=== PATIENT | male | born 1955 | race Caucasian/White ===

== ENCOUNTER → 2018-08-16 | Outpatient (CLI) | payer MEDICARE ==
[2018-08-16 07:28] LABS: Blood Urea Nitrogen 18 mg/dL (9-20)
--- NOTE | 2018-08-16 08:58 | CT ---
EXAMINATION TYPE: CT abdomen w con DATE OF EXAM: 08/16/2018 COMPARISON: None. HISTORY: Generalized abdominal pain. CT DLP: 913 mGycm, Automated Exposure Control for Dose Reduction was Utilized. CONTRAST: CT scan of the abdomen is performed with oral and with IV Contrast, patient injected with 100 mL of I sovue 300. FINDINGS: LUNG BASES: No significant abnormality is appreciated. LIVER/GB: No significant abnormality is appreciated. PANCREAS: No significant abnormality is seen. SPLEEN: No significant abnormality is seen. ADRENALS: No significant abnormality is seen. KIDNEYS: No significant abnormality is seen. BOWEL: Oral contrast does not reach colonic level making evaluation of distal bowel slightly suboptim al. No suspicious small or large bowel dilatation is present. LYMPH NODES: No greater than 1cm abdominal lymph nodes are appreciated. OSSEOUS STRUCTURES: Mild facet arthropathy lower lumbar spine. [id number] disc space narrowing L2-L3 level with vacuum disc phenomenon. OTHER: Mild to moderate calcified plaque of the aorta. IMPRESSION: No significant acute finding is seen to account for patient's clinical symptoms of gener alized abdominal pain.
== END | disposition home or self-care (01) ==
LOC: RADCTMAIN 06:48
PROVIDERS: ATTEND Family Medicine
DX: R10.84 Generalized abdominal pain (principal); Z01.812 Encounter for preprocedural laboratory examination
CPT/HCPCS: 82565; 84520; 74160; 36415; Q9967

== ENCOUNTER → 2019-04-25 | Outpatient (CLI) | payer MEDICARE ==
--- NOTE | 2019-04-25 13:03 | US ---
EXAMINATION TYPE: US abdomen complete DATE OF EXAM: 04/25/2019 COMPARISON: 08/16/2018 CT CLINICAL HISTORY: R10.84 abdominal pain.Pain for years. EXAM MEASUREMENTS: Liver Length: 16.9 cm Gallbladder Wall: .3 cm CBD: .8 cm Spleen: 10.9 cm Right Kidney: 11.0 x 4.6 x 4.7 cm Left Kidney: 10.1 x 5.2 x 5.0 cm Pancreas: wnl Liver: wnl Gallbladder: wnl Evidence for sonographic Ghotra's sign: No CBD: Dilated Spleen: wnl Right Kidney: wnl Left Kidney: wnl Upper IVC: wnl Abd Aorta: Prox 3.2 cm upper limits. The liver is homogenous. The intrahepatic portion of the IVC and proximal abdominal aorta are within normal limits. There is no evidence of cholelithiasis. The visualized portions of the pancreas ar e homogenous. The spleen is unremarkable. Kidneys are symmetric and free of hydronephrosis. No janett al lesions are seen. IMPRESSION: 1. Aneurysmal dilatation of the proximal abdominal aorta measuring up to 3.2 cm. 2. Dilation of the common bile duct up to 0.8 cm without other evidence for acute cholecystitis. MRCP could further evaluate this finding as this is a new finding from the prior CT of 08/16/2018.
== END | disposition home or self-care (01) ==
LOC: RADUSWWP 09:02
PROVIDERS: ATTEND Surgery
DX: I71.4 Abdominal aortic aneurysm, without rupture (principal); K83.8 Other specified diseases of biliary tract
CPT/HCPCS: 76700

== ENCOUNTER → 2020-02-05 | Outpatient (CLI) | payer MEDICARE ==
--- NOTE | 2020-02-05 10:26 | CT ---
EXAMINATION TYPE: CT brain wo con DATE OF EXAM: 02/05/2020 COMPARISON: None HISTORY: 64-year-old male R51 headaches TECHNIQUE: Examination was done in axial plane without intravenous contrast. Coronal and sagittal r econstructions performed. CT DLP: 858.7 mGycm Automated exposure control for dose reduction was used. FINDINGS: There is no evidence of acute intracranial hemorrhage, acute ischemic changes, mass, mass-effect, or extra-axial fluid collection. There is no effacement of cerebral sulci or basal subarachnoid cister ns. There is no hydrocephalus. There is no midline shift. Cosme-white matter distinction is preserv ed. [id number] cerebral cortical atrophy. Paranasal sinuses and mastoid air cells are pneumatized. Orbits and globes are intact. IMPRESSION: Mild to moderate cerebral cortical atrophy. No acute intracranial abnormality seen.
== END | disposition home or self-care (01) ==
LOC: RADCTMAIN 07:35
PROVIDERS: ATTEND Physician Assistant Medical
DX: G31.89 Other specified degenerative diseases of nervous system (principal)
CPT/HCPCS: 70450

== ENCOUNTER → 2021-11-08 | Outpatient (CLI) | payer MEDICARE ==
--- NOTE | 2021-11-08 16:09 | P.SLEEP ---
History of Present Illness H&P Date: 11/08/21 This is a 66-year-old male patient, referred to me for sleep apnea evaluation. According to the , the patient is having loud snoring and apneas overnight. The patient is currently retired. 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 He is known to have diabetes, hypertension, hyperlipidemia and COPD. He goes to bed at around 11 PM. Wakes up 7 AM in the morning. He is restless during sleep. Denies waking up choking or gasping for air. No nocturia. Occasionally grinds his teeth and has nighttime heartburn. His Saltese score is low at 4. No recent weight gain or weight loss. No sleep paralysis. No hallucinations. No cataplexy. Review of Systems Constitutional: Reports daytime sleepiness, Reports fatigue Eyes: denies as per HPI, denies blurred vision, denies bulging eye, denies decreased vision, denies diplopia, denies discharge, denies dry eye, denies irritation, denies itching, denies pain, denies photophobia, denies loss of peripheral vision, denies loss of vision, denies tunnel vision/blind spots Ears: deny: decreased hearing, ear discharge, earache, tinnitus Ears, nose, mouth and throat: Reports as per HPI Breasts: absent: as per HPI, gynecomastia Cardiovascular: Reports as per HPI Respiratory: Reports snoring Gastrointestinal: Reports as per HPI Genitourinary: Reports as per HPI Musculoskeletal: Reports as per HPI Musculoskeletal: absent: ankle pain, ankle stiffness, ankle swelling Integumentary: Reports as per HPI Neurological: Reports as per HPI Psychiatric: Reports as per HPI Endocrine: Reports as per HPI Hematologic/Lymphatic: Reports as per HPI Allergic/Immunologic: Reports as per HPI Past Medical History Additional Past Medical History / Comment(s): Diabetes mellitus, hypertension, hyperlipidemia, COPD Past Surgical History: No Surgical Hx Reported Additional Past Surgical History / Comment(s): Colonoscopy Smoking Status: Never smoker Past Alcohol Use History: None Reported Past Drug Use History: None Reported Medications and Allergies Home Medications and Allergies Comment(s): Metformin 1000 mg once a day, Lipitor 10 mg by mouth daily, glipizide 5 mg by mouth daily, lisinopril 20 mg by mouth daily, Prilosec 20 mg by mouth daily. Physical Exam Vitals: BP is 137/73, pulse is 57, respirations 14, temperature is 96.6, body mass index is 25.2, weight is 197 pounds, Saltese score is a 4, neck size is 16 inches. The patient appeared well nourished and normally developed. Vital signs as documented. Head exam is unremarkable. No scleral icterus or corneal arcus noted. Neck is without jugular venous distension, thyromegaly, or carotid bruits. Carotid upstrokes are brisk bilaterally. Lungs are clear to auscultation and percussion. Cardiac exam reveals the PMI to be normally sized and situated. Rhythm is regular. First and second heart sounds normal. No murmurs, rubs or gallops. Abdominal exam reveals normal bowel sounds, no masses, no organomegaly and no aortic enlargement. Extremities are nonedematous and both femoral and ped al pulses are normal.Examination of the skin revealed no evidence of significant rashes, suspicious appearing nevi or other concerning lesions.Neurologically, the patient is awake and alert and the patient does not have any focal neurological deficit. Cranial nerves are essentially intact. Assessment and Plan Plan: Loud snoring with limited hypersomnia, Saltese score is at 4, low clinical suspicion for obstructive sleep apnea. Diabetes mellitus Hypertension Hyperlipidemia COPD Plan Proceed with screening polysomnogram We'll discuss the results with the patient and decide on treatment accordingly. My overall clinical suspicion is low. Optimize comorbidities Maintaining good sleep hygiene measures We'll continue to follow Sleep Note - Sleep Note Sleep Note: Temperature: Pulse Rate: Respiratory Rate: Blood Pressure: SpO2: Height: Weight: BMI: Neck Circumference:
== END | disposition home or self-care (01) ==
LOC: SLEEP 13:09
PROVIDERS: ATTEND Internal Medicine Critical Care Medicine
DX: R06.83 Snoring (principal); E11.9 Type 2 diabetes mellitus without complications; I10 Essential (primary) hypertension; E78.5 Hyperlipidemia, unspecified; J44.9 Chronic obstructive pulmonary disease, unspecified
CPT/HCPCS: 99211

== ENCOUNTER → 2021-12-14 | Outpatient (CLI) | payer MEDICARE ==
--- NOTE | 2021-12-16 07:07 | MR ---
EXAMINATION TYPE: MR brain wo/w con DATE OF EXAM: 12/14/2021 COMPARISON: None HISTORY: Memory loss CONTRAST: Standard multiplanar, multisequence MRI departmental protocol images were obtained without contrast a nd with mL intravenous gadolinium contrast. Diffusion images show no evidence of an acute infarct. There is cerebral cortical atrophy. There is n o mass effect or midline shift. No sign of intracranial hemorrhage. There is some thinning of the cor pus callosum. Brainstem is intact. There is some mild increased signal adjacent to the lateral ventri cles consistent with age-related white matter changes. No evidence of posterior fossa mass. Sella turcica is normal. No evidence of orbital mass. The contrast images show no pathologic enhancement. There is normal enhancement of the venous sinuses . IMPRESSION: Cerebral atrophy. No acute intracranial abnormality. Age related white matter signal changes.
== END | disposition home or self-care (01) ==
LOC: RADMRIMAIN 16:00
PROVIDERS: ATTEND Family Medicine
DX: E11.42 Type 2 diabetes mellitus with diabetic polyneuropathy (principal); R41.89 Other symptoms and signs involving cognitive functions and awareness; I69.819 Unspecified symptoms and signs involving cognitive functions following other cerebrovascular disease
CPT/HCPCS: 70553; A9585

== ENCOUNTER → 2022-04-06 | Outpatient (CLI) | payer MEDICARE, OTHER ==
--- NOTE | 2022-04-07 11:01 | NM ---
EXAMINATION TYPE: NM DatScan Brain SPECT DATE OF EXAM: 04/06/2022 COMPARISON: Correlation MRI 12/14/2021 HISTORY: 66-year-old male G2 5.0, tremor TECHNIQUE: 10 drops of Lugol's solution was administered 1 hour prior to injection as a thyroid bloc cherie agent. After the administration of 4.6 mCi I-123 Ioflupane DaTscan. Images obtained [address] injection. SPECT images of the brain were acquired with axial and coronal reconstructions. FINDINGS: There is bilateral blunting of the corpus striatum and diffuse increased background activity. IMPRESSION: Findings compatible with either idiopathic Parkinson's disease or a parkinsonian syndrome.
== END | disposition home or self-care (01) ==
LOC: RADNMMAIN 10:53
PROVIDERS: ATTEND Psychiatry & Neurology Neurology
DX: G25.0 Essential tremor (principal)
CPT/HCPCS: 78803; A9584

== ENCOUNTER 2022-09-08 10:20 | Emergency (ER) | payer MEDICARE ==
[2022-09-08 10:41] VITALS: TEMP 98.5
--- NOTE | 2022-09-08 11:35 | XR ---
EXAMINATION TYPE: XR chest 2V DATE OF EXAM: 09/08/2022 COMPARISON: NONE TECHNIQUE: PA and lateral views submitted. HISTORY: ANASTASIYA FINDINGS: The lungs are clear and there is no pneumothorax, pleural effusion, or focal pneumonia. Heart size normal and no overt failure. Osseous structures demonstrate hypertrophic and degenerative changes of the spine. Hyperinflation suggests COPD. Arthropathy of the right shoulder. Atherosclerotic change a sophie. IMPRESSION: 1. No acute process. Correlate for COPD.
[2022-09-08 11:48] LABS: Basophils % (A) 0 %; Eosinophils % (A) 1 %; HCT 47.1 % (39.0-53.0); HGB 15.8 gm/dL (13.0-17.5); Lymphocytes # (A) 1.1 k/uL (1.0-4.8); Lymphocytes % (A) 20 %; MCH 32.5 pg (25.0-35.0); MCHC 33.5 g/dL (31.0-37.0); MCV 97.1 fL (80.0-100.0); Mean Platelet Volume 7.3; Monocytes # (A) 0.4 k/uL (0-1.0); Monocytes % (A) 8 %; Neutrophils % (A) 71 %; Platelet Count 160 k/uL (150-450); RBC 4.85 m/uL (4.30-5.90); RDW 12.6 % (11.5-15.5); WBC 5.6 k/uL (3.8-10.6)
[2022-09-08 12:05] LABS: ALT 17 U/L (4-49); AST 23 U/L (17-59); African American GFR (CKD) >90 (>60 ml/min/1.73 sqM); Albumin 4.2 g/dL (3.5-5.0); Alkaline Phosphatase 107 U/L (38-126); Anion Gap 7 mmol/L; Blood Urea Nitrogen 11 mg/dL (9-20); Calcium 9.1 mg/dL (8.4-10.2); Carbon Dioxide 29 mmol/L (22-30); Chloride 103 mmol/L (98-107); Glucose 102 mg/dL (74-99); Magnesium 2.2 mg/dL (1.6-2.3); Non-African American GFR(CKD) >90 (>60 ml/min/1.73 sqM); Potassium 3.8 mmol/L (3.5-5.1); Sodium 139 mmol/L (137-145); Total Bilirubin 0.6 mg/dL (0.2-1.3); Total Protein 6.7 g/dL (6.3-8.2)
[2022-09-08 12:55] LABS: INR 1.1 (<1.2); Partial Thromboplastin Time 24.8 sec (22.0-30.0); Prothrombin Time 11.7 sec (9.0-12.0)
[2022-09-08 13:10] VITALS: RESP 18
--- NOTE | 2022-09-08 13:32 | ED ---
General Adult HPI - General Chief complaint: Shortness of Breath Stated complaint: ANASTASIYA Time Seen by Provider: 09/08/22 10:51 Source: patient, RN notes reviewed Mode of arrival: ambulatory Limitations: no limitations - History of Present Illness Initial comments: 67-year-old male presents emergency Department with chief complaint of shortness of breath. Patient states she's been having increasing shortness but the last one month did CBC was placed on Zithromax and steroids. He states he does not feel any improvement. He was also given an inhaler. Patient states she was diagnosed with COPD in the past. Patient states that his PCP schedule him for a stress test but is one month away. Denies any chest pain. He states he just gets winded occasionally. Nothing much at rest. Denies any productive cough. - Related Data Allergies Allergy/AdvReac Type Severity Reaction Status Date / Time No Known Allergies Allergy Verified 09/08/22 10:41 Review of Systems ROS Statement: Those systems with pertinent positive or pertinent negative responses have been documented in the HPI. ROS Other: All systems not noted in ROS Statement are negative. Past Medical History Past Medical History: Diabetes Mellitus Additional Past Medical History / Comment(s): Diabetes mellitus, hypertension, hyperlipidemia, COPD, c pap. Parkinsons Past Surgical History: No Surgical Hx Reported Additional Past Surgical History / Comment(s): Colonoscopy Past Psychological History: No Psychological Hx Reported Smoking Status: Never smoker Past Alcohol Use History: Occasional Past Drug Use History: None Reported General Exam Limitations: no limitations General appearance: alert, in no apparent distress Head exam: Present: atraumatic, normocephalic, normal inspection Neck exam: Present: normal inspection, full ROM. Absent: tenderness, meningismus, lymphadenopathy Respiratory exam: Present: normal lung sounds bilaterally. Absent: respiratory distress, wheezes, rales, rhonchi, stridor Cardiovascular Exam: Present: regular rate, normal rhythm, normal heart sounds. Absent: systolic murmur, diastolic murmur, rubs, gallop, clicks GI/Abdominal exam: Present: soft, normal bowel sounds. Absent: distended, tenderness, guarding, rebound, rigid Neurological exam: Present: alert Skin exam: Present: warm, dry, intact, normal color. Absent: rash Course Vital Signs 09/08/22 09/08/22 09/08/22 10:37 11:20 11:25 Temperature 98.5 F Pulse Rate 65 51 L Respiratory 24 24 24 Rate Blood Pressure 158/76 144/73 O2 Sat by Pulse 98 99 Oximetry 09/08/22 09/08/22 09/08/22 12:42 13:08 14:02 Temperature Pulse Rate 55 L 66 65 Respiratory 20 18 18 Rate Blood Pressure 147/81 146/70 144/71 O2 Sat by Pulse 96 98 99 Oximetry EKG Findings - EKG Comments: EKG Findings:: EKG 4-10:50 sinus bradycardia rate of 54 OH 190 QRS 101 QT/QTc 412/398 - EKG Results: EKG: interpreted by [facility] Medical Decision Making - Medical Decision Making Was pt. sent in by a medical professional or institution (, PA, [employer]ER, urgent care, hospital, or custodial...) When possible be specific @ -No Did you speak to anyone other than the patient for history (EMS, parent, family, police, friend...)? What history was obtained from this source @ - providing past medical history and current medications Did you review nursing and triage notes (agree or disagree)? Why? @ -I reviewed and agree with nursing and triage notes Were old charts reviewed (outside hosp., previous admission, EMS record, old EKG, old radiological studies, urgent care reports/EKG's, custodial records)? Report findings @ -No old charts were reviewed Differential Diagnosis (chest pain, altered mental status, abdominal pain women, abdominal pain men, vaginal bleeding, weakness, fever, dyspnea, syncope, headache, dizziness, GI bleed, back pain, seizure, CVA, palpatations, mental health, musculoskeletal)? @ -Differential Dyspnea: Coronary syndrome, arrhythmia, tamponade, asthma, COPD, pulmonary embolism, pneumonia, pneumothorax, pulmonary effusion, anaphylaxis, diabetic ketoacidosis, flailed chest, pulmonary contusion, diaphragmatic rupture, anemia, neuromuscular, this is not meant to be an all-inclusive list. ble EKG interpreted by me (3pts min.). @ -As above X-rays interpreted by me (1pt min.). @ -Chest x-ray shows COPD changes, no acute process was CT interpreted by me (1pt min.). @ -None done U/S interpreted by me (1pt. min.). @ -None done What testing was considered but not performed or refused? (CT, X-rays, U/S, labs)? Why? @ -None What meds were considered but not given or refused? Why? @ -None Did you discuss the management of the patient with other professionals (professionals i.e. , PA, [employer], lab, RT, psych nurse, transition social worker, playback operator, teacher, low altitude air defense officer, insurance case manager)? Give summary @ -No Was smoking cessation discussed for >3mins.? @ -No Was critical care preformed (if so, how long)? @ -No Were there social determinants of health that impacted care today? How? (Homelessness, low income, unemployed, alcoholism, drug addiction, transportation, low edu. Level, literacy, decrease access to med. care, long term, r ehab)? @ -No Was there de-escalation of care discussed even if they declined (Discuss DNR or withdrawal of care, Hospice)? DNR status @ -No What co-morbidities impacted this encounter? (DM, HTN, Smoking, COPD, CAD, Cancer, CVA, ARF, Chemo, Hep., AIDS, mental health diagnosis, sleep apnea, morbid obesity)? @ -COPD, Parkinson's Was patient admitted / discharged? Hospital course, mention meds given and route, prescriptions, significant lab abnormalities, going to OR and other pertinent info. @ -Discharge patient's been having worsening shortness breath over the last 4 weeks. Patient has seen PCP. Patient needs further evaluation outpatient with cardiology including echocardiogram, possible stress test. Appointment was made by case management. Patient and family agree with this plan of discharge and return for any worsening symptoms. Undiagnosed new problem with uncertain prognosis? @ -No Drug Therapy requiring intensive monitoring for toxicity (Heparin, Nitro, Insulin, Cardizem)? @ -No Were any procedures done? @ -No Diagnosis/symptom? @ -Exertional dyspnea Acute, or Chronic, or Acute on Chronic? @ -Acute Uncomplicated (without systemic symptoms) or Complicated (systemic symptoms)? @ -Complicated Side effects of treatment? @ -No Exacerbation, Progression, or Severe Exacerbation? @ -No Poses a threat to life or bodily function? How? (Chest pain, [place], [place], pneumonia, PE, COPD, DKA, ARF, appy, cholecystitis, CVA, Diverticulitis, Homicidal, Suicidal, threat to staff... and all critical care pts) @ -No - Lab Data Result diagrams: 09/08/22 11:14 09/08/22 11:14 Lab Results 09/08/22 09/08/22 09/08/22 Range/Units 11:14 11:14 11:14 WBC 5.6 (3.8-10.6) k/uL RBC 4.85 (4.30-5.90) m/uL Hgb 15.8 (13.0-17.5) gm/dL Hct 47.1 (39.0-53.0) % MCV 97.1 (80.0-100.0) fL MCH 32.5 (25.0-35.0) pg MCHC 33.5 (31.0-37.0) g/dL RDW 12.6 (11.5-15.5) % Plt Count 160 (150-450) k/uL MPV 7.3 Neutrophils % 71 % Lymphocytes % 20 % Monocytes % 8 % Eosinophils % 1 % Basophils % 0 % Neutrophils # 4.0 (1.3-7.7) k/uL Lymphocytes # 1.1 (1.0-4.8) k/uL Monocytes # 0.4 (0-1.0) k/uL Eosinophils # 0.0 (0-0.7) k/uL Basophils # 0.0 (0-0.2) k/uL PT 11.7 (9.0-12.0) sec INR 1.1 (<1.2) APTT 24.8 (22.0-30.0) sec D-Dimer 0.20 (<0.60) mg/L FEU Sodium 139 (137-145) mmol/L Potassium 3.8 (3.5-5.1) mmol/L Chloride 103 (98-107) mmol/L Carbon Dioxide 29 (22-30) mmol/L Anion Gap 7 mmol/L BUN 11 (9-20) mg/dL Creatinine 0.68 (0.66-1.25) mg/dL Est GFR (CKD-EPI)AfAm >90 (>60 ml/min/1.73 sqM) Est GFR (CKD-EPI)NonAf >90 (>60 ml/min/1.73 sqM) Glucose 102 H (74-99) mg/dL Plasma Lactic Acid Duran (0.7-2.0) mmol/L Calcium 9.1 (8.4-10.2) mg/dL Magnesium 2.2 (1.6-2.3) mg/dL Total Bilirubin 0.6 (0.2-1.3) mg/dL AST 23 (17-59) U/L ALT 17 (4-49) U/L Alkaline Phosphatase 107 (38-126) U/L Troponin I (0.000-0.034) ng/mL NT-Pro-B Natriuret Pep pg/mL Total Protein 6.7 (6.3-8.2) g/dL Albumin 4.2 (3.5-5.0) g/dL 09/08/22 09/08/22 09/08/22 Range/Units 11:14 11:14 11:14 WBC (3.8-10.6) k/uL RBC (4.30-5.90) m/uL Hgb (13.0-17.5) gm/dL Hct (39.0-53.0) % MCV (80.0-100.0) fL MCH (25.0-35.0) pg MCHC (31.0-37.0) g/dL RDW (11.5-15.5) % Plt Count (150-450) k/uL MPV Neutrophils % % Lymphocytes % % Monocytes % % Eosinophils % % Basophils % % Neutrophils # (1.3-7.7) k/uL Lymphocytes # (1.0-4.8) k/uL Monocytes # (0-1.0) k/uL Eosinophils # (0-0.7) k/uL Basophils # (0-0.2) k/uL PT (9.0-12.0) sec INR (<1.2) APTT (22.0-30.0) sec D-Dimer (<0.60) mg/L FEU Sodium (137-145) mmol/L Potassium (3.5-5.1) mmol/L Chloride (98-107) mmol/L Carbon Dioxide (22-30) mmol/L Anion Gap mmol/L BUN (9-20) mg/dL Creatinine (0.66-1.25) mg/dL Est GFR (CKD-EPI)AfAm (>60 ml/min/1.73 sqM) Est GFR (CKD-EPI)NonAf (>60 ml/min/1.73 sqM) Glucose (74-99) mg/dL Plasma Lactic Acid Duran 1.2 (0.7-2.0) mmol/L Calcium (8.4-10.2) mg/dL Magnesium (1.6-2.3) mg/dL Total Bilirubin (0.2-1.3) mg/dL AST (17-59) U/L ALT (4-49) U/L Alkaline Phosphatase (38-126) U/L Troponin I <0.012 (0.000-0.034) ng/mL NT-Pro-B Natriuret Pep 28 pg/mL Total Protein (6.3-8.2) g/dL Albumin (3.5-5.0) g/dL Disposition Clinical Impression: Exertional dyspnea Disposition: HOME SELF-CARE Condition: Stable Instructions (If sedation given, give patient instructions): Dyspnea (ED) Additional Instructions: Please return to the Emergency Department if symptoms worsen or any other concerns. Is patient prescribed a controlled substance at d/c from ED?: No Referrals: Albino Holden PAC [REFERRING] - 09/11/22 10:30 am Tom Rinaldi DO [Primary Care Provider] - 1-2 days Fernando Mcclure MD [STAFF PHYSICIAN] - As Soon As Possible (Carmen from [facility] will reach out regarding an appointment. If no information by Sunday please call their office. ) Time of Disposition: 13:44
[2022-09-08 14:04] VITALS: BP 144/71; PULSE 65
== END 2022-09-08 14:04 | disposition home or self-care (01) ==
LOC: EC 10:20
DX: R06.09 Other forms of dyspnea (principal); E11.9 Type 2 diabetes mellitus without complications; I10 Essential (primary) hypertension; J44.9 Chronic obstructive pulmonary disease, unspecified; E78.5 Hyperlipidemia, unspecified
CPT/HCPCS: 36415; 71046; 80053; 83605; 83735; 83880; 84484; 85025; 85379; 85610; 85730; 93005; 99285

== ENCOUNTER → 2022-11-17 | Outpatient (CLI) | payer MEDICARE ==
[2022-11-17 10:38] LABS: African American GFR (CKD) >90 (>60 ml/min/1.73 sqM); Blood Urea Nitrogen 26 mg/dL (9-20); Non-African American GFR(CKD) 88 (>60 ml/min/1.73 sqM)
--- NOTE | 2022-11-20 00:56 | CT ---
EXAMINATION TYPE: CT chest wo/w con DATE OF EXAM: 11/17/2022 COMPARISON: Radiograph 09/08/2022 HISTORY: 67-year-old male SOB, COPD, R06.02 SOB J44.9 CHRONIC OBSTRUCTIVE PULMONARY DIS TECHNIQUE: Contiguous axial scanning of the chest before and after the administration of 100 mL of Is ovue 300. Coronal/sagittal reconstructions performed. CT DLP: 711.2mGycm. Automatic exposure control utilized for a dose reduction. FINDINGS: Heart normal size without pericardial effusion. Ectatic aortic root at 3.8 cm. Minimal atherosclerotic arch calcifications. Conventional arch vessel branching anatomy. No progressive lymphadenopathy by CT size criteria. There is moderate centrilobular emphysema and mild paraseptal emphysema in the upper lungs. No consol idation or pleural effusion. Mild bronchial wall thickening No consolidation or pleural effusion. Tiny hiatal hernia. Mild to moderate atherosclerotic calcifications abdominal aorta. Visualized uppe r abdomen otherwise shows no gross abnormality. Bones: DISH mid to lower thoracic spine. Small endplate Schmorl's nodes lower thoracic spine. IMPRESSION: 1. COPD with moderate emphysema. No acute process seen. 2. Tiny hiatal hernia.
== END | disposition home or self-care (01) ==
LOC: RADCTMAIN 09:47
PROVIDERS: ATTEND Family Medicine
DX: J43.2 Centrilobular emphysema (principal); K44.9 Diaphragmatic hernia without obstruction or gangrene; E78.2 Mixed hyperlipidemia
CPT/HCPCS: 82565; 84520; 71270; 36415; Q9967